=== PATIENT | female | born 1980 | race Caucasian/White ===

== ENCOUNTER → 2020-01-23 | Outpatient (CLI) | payer OTHER ==
--- NOTE | 2020-01-23 15:28 | NEURO WORKBENCH EEG REPORT ---
EEG Report Patient: Tyrone Quinones ID: [id number] Referring Doctor: Waqas Isaacs MD DOS: 01/23/2020 Medications: Lisinopril, hydrochlorothiazide, Janumet, Metformin, Metoprolol, Victoza, Vitamins History This is a 39 year old right handed female with a history of hypertension, diabetes, headaches, high cholesterol, depression, sleep apnea with CPAP, attention and concentration deficit, anxiety, disorientation. This EEG was requested for speech disturbance and strabismus. EEG Interpretation This EEG was recorded in the awake and drowsy states. The awake EEG is characterized by a low amplitude but fairly well-organized background with a well developed and reactive posterior dominant rhythm of 9.5Hz. The remainder of the background was characterized by a combination of alpha and beta frequencies. There was intermittent mu rhythm in the central regions. There was prominent EKG artifact. Drowsiness was characterized by slowing of the background rhythms. Photic stimulation resulted in a good driving response. There were no epileptiform abnormalities. The EKG showed a regular rhythm. EEG Classification * Normal EEG Impression This EEG is within normal limits for age. INTERPRETING NEUROLOGIST: Ira Guajardo MD, FRCPC Board Certified in Neurology, with special qualification in Child Neurology, and in Clinical Neurophysiology [facility]
== END ==
LOC: NEURO 12:23
PROVIDERS: ATTEND Pediatrics
DX: R47.9 Unspecified speech disturbances (principal); R41.840 Attention and concentration deficit; H50.9 Unspecified strabismus; F41.9 Anxiety disorder, unspecified; R41.0 Disorientation, unspecified
CPT/HCPCS: 95819